=== PATIENT | male | born 1995 | race Caucasian/White ===

== ENCOUNTER 2020-05-05 09:26 | Emergency (ER) | payer BC, SELFPAY ==
[2020-05-05 09:41] VITALS: BP 113/79; PULSE 118; RESP 20; TEMP 38.4; O2SAT 97
--- NOTE | 2020-05-05 09:48 | ED.GENADULT ---
HPI - General Adult General Stated complaint: body aches Time Seen by Provider: 05/05/20 09:49 History of Present Illness HPI narrative: 24-year-old male patient presents to the [facility] with complaints of fevers that started yesterday. Patient states he has had a slight cough but denies any shortness of breath. Patient states that he does work as a class a truck driver and states that there has been some people at work that have tested positive for COVID-19. Patient states he was around his grandmother yesterday morning that does have a slight cold. Patient states that his symptoms started last night. Denies taking anything for the symptoms except for aspirin. Patient does admitting to smoke about a pack a week. Related Data Allergies Allergy/AdvReac Type Severity Reaction Status Date / Time No Known Allergies Allergy Mild Unverified 05/04/15 20:08 Review of Systems Review of Systems: Narrative: CONSTITUTIONAL: Positive fever, denies chills, or sweats. EYES: Denies visual changes, redness, or discharge. ENT: Denies rhinorrhea, congestion, sore throat, or otalgia. CARDIOVASCULAR: Denies chest pain, palpitations, or edema. RESPIRATORY: Positive mild cough, denies dyspnea. GASTROINTESTINAL: Denies abdominal pain, nausea, vomiting, or diarrhea. GENITOURINARY: Denies dysuria or hematuria. SKIN: Denies rash or itching. MUSCULOSKELETAL: Denies back pain, joint pain, or myalgia. NEUROLOGIC: Denies headache, numbness, or weakness. PSYCHIATRIC: Denies anxiety or depression. PMFSH Comments At the time of my signature I agree with nursing past medical history, surgical, social, and family history. There is no relevant family history pertinent to the presenting complaint. Exam Narrative: Exam Narrative: GENERAL: Well-appearing, well-nourished, and in no acute distress. HEAD: Normocephalic, atraumatic. EYES: PERRLA and EOMI. ENT: Nares clear, no rhinorrhea or epistaxis. Mucous membranes moist. Posterior pharynx with no erythema, tonsil enlargement, exudates or lesions present. Bilateral TMs are clear no erythema or foreign bodies to the canal. NECK: Supple. No lymphadenopathy CHEST: Clear to auscultation. No respiratory distress. HEART: Regular rate and rhythm. No murmur heard. Normal peripheral pulses. ABDOMEN: Soft, nontender, nondistended, normal active bowel sounds. EXTREMITIES: Normal range of motion. No edema. SKIN: Warm, dry, no rash. NEURO: No focal deficits. Alert and oriented x3. Course Vital Signs Vital signs: Vital Signs Temperature 38.4 C H 05/05/20 09:41 Pulse Rate 118 H 05/05/20 09:41 Respiratory Rate 20 05/05/20 09:41 Blood Pressure 113/79 05/05/20 09:41 Pulse Oximetry 97 05/05/20 09:41 Temperature 38.4 C H 05/05/20 09:41 Pulse Rate 118 H 05/05/20 09:41 Respiratory Rate 20 05/05/20 09:41 Blood Pressure 113/79 05/05/20 09:41 Pulse Oximetry 97 05/05/20 09:41 Vital signs reviewed. Medical Decision Making Differential Diagnosis Differential Diagnosis: Differential diagnosis: Allergic rhinitis, chronic sinusitis, tonsillitis, acute sinusitis, infectious mononucleosis, seasonal influenza, pertussis, diphtheria, meningococcal disease, viral syndrome, viral bronchitis, RSV., COVID-19 Discussed with patient that we will go ahead and send an order to the hospital to have been tested for COVID-19. Discussed with patient that while he was waiting to be swab and after he has been swab is very important to maintain isolation and continue to quarantine himself. Discussed with him he can take Tylenol or ibuprofen as needed for fevers, keep himself well-hydrated and if he has worsening symptoms such as chest pain, worsening shortness of breath or high fevers that do not come down with Tylenol ibuprofen then it is advised that he goes to the ER for further evaluation and treatment. Patient verbalized understanding of this denies any other questions or concerns at this time. Vital Signs Vital Signs: Alayna
== END 2020-05-05 10:05 | disposition home or self-care (01) ==
PROVIDERS: Emergency Provider Nurse Practitioner Family
DX: Z20.828 Contact with and (suspected) exposure to other viral communicable diseases (principal); R50.9 Fever, unspecified
CPT/HCPCS: 99201; G0463

== ENCOUNTER 2023-05-16 11:41 | Emergency (ER) | payer BC, SELFPAY ==
[2023-05-16 11:59] VITALS: BP 127/83; PULSE 68; RESP 18; TEMP 37.2; O2SAT 98
--- NOTE | 2023-05-16 12:10 | ED.ABDPAIN ---
HPI - Abdominal Pain General Chief Complaint: Abdominal Pain Stated Complaint: stomach issues Time Seen by Provider: 05/16/23 12:25 Source: patient Mode of arrival: ambulatory Limitations: no limitations History of Present Illness HPI narrative: Patient is a 27-year-old male that presents with acid reflux, nausea and diarrhea since Saturday. Patient has taken Tums with no relief. Does report mild abdominal cramping and frequent urgency to have bowel movement. Denies any fever, chills and vomiting. Denies any sick contacts. Denies any blood in diarrhea. Denies any pain when pushing on stomach. Does report as reflux is worse when he lays down night. Reports diet does consist of for food and spicy food along with caffeine. Related Data Allergies Allergy/AdvReac Type Severity Reaction Status Date / Time No Known Allergies Allergy Mild Verified 05/16/23 11:48 Review of Systems Review of Systems: All systems reviewed & are unremarkable except as noted in HPI and below Constitutional: Constitutional: Denies body ache(s), Denies chills, Denies fatigue, Denies fever(s), Denies headache(s), Denies malaise and Denies weakness Eyes: Eyes: Denies blurry vision, Denies irritation and Denies loss of vision ENT: Denies otalgia, Denies headache(s), Denies nasal discharge, Denies sinus pain and Denies sore throat Cardiovascular: Cardiovascular: Denies chest pain, Denies irregular heart rhythm and Denies dyspnea Respiratory: Respiratory: Denies dyspnea Gastrointestinal: Gastrointestinal: Reports abdominal pain, Denies melena, Denies hematochezia, Reports heartburn, Reports diarrhea, Reports nausea and Denies vomiting Musculoskeletal: Musculoskeletal: Denies back pain, Denies myalgias and Denies arthralgias Integumentary/Breasts: Skin/Breast: Denies pruritus and Denies rash Neurologic: Denies headache(s), Denies loss of vision and Denies weakness Psychiatric: Psychiatric: Reports no additional psychiatric complaints Endocrine: Endocrine: Denies fatigue PMFSH Social History Social History Gender identity (if verbalized by the patient): Male Comments At time of signature, agree with nursing past medical, surgical, social and family history. There is no relevant family history pertinent to the presenting complaint. Exam Const: General: cooperative, healthy appearing, comfortable, no acute distress and well nourished Nutritional Appearance: well nourished Orientation/consciousness: patient oriented x3 Limitations: no limitations HENMT: Head: normal to inspection, normocephalic and atraumatic Ears: hearing grossly normal bilaterally and external ears normal Face/Nose/Sinus: Normal external nose present, normal facial exam and face symmetric Face and sinus: normal facial exam and face symmetric Mouth: Yes lip normal Eyes: General: appearance normal, both eyes and all related structures Alignment and Position: alignment normal and position normal Periorbital: periorbital findings normal Eyelids: eyelids normal Pupils: Equal, round and reactive pupils present EOM: EOMs intact bilaterally Neck: Neck: normal visual inspection, full ROM and supple Chest: Chest palpation & inspection: normal inspection of the chest Resp: Effort & Inspection: normal respiratory effort and able to speak in complete sentences Auscultation: clear to auscultation bilaterally Cardio: Rate: regular rate Rhythm: regular rhythm Heart sounds: S1 normal heart sound present and S2 normal heart sound present GI: Inspection: normal to inspection GI Palp: No abdominal tenderness, Yes Soft to palpation and No Guarding due to palpation present (GI) Skin: General skin exam: normal color and no rashes or lesions noted Neuro: General: patient oriented x3 and moves all extremities Cranial nerves: Yes Equal, round and reactive pupils present Speech: normal speech Gait exam (Neuro): Normal gait present Extre
== END 2023-05-16 12:48 | disposition home or self-care (01) ==
PROVIDERS: Emergency Provider Nurse Practitioner Family; PCP Family Medicine
DX: K52.9 Noninfective gastroenteritis and colitis, unspecified (principal); K21.9 Gastro-esophageal reflux disease without esophagitis
CPT/HCPCS: 99213; G0463

== ENCOUNTER 2023-05-29 10:59 | Emergency (ER) | payer BC, SELFPAY ==
[2023-05-29 11:13] VITALS: BP 130/78; PULSE 87; RESP 16; TEMP 37.1; O2SAT 100
--- NOTE | 2023-05-29 11:14 | ED.GENADULT ---
HPI - General Adult General Chief complaint: Unspecified Stated complaint: Fatigue Time Seen by Provider: 05/29/23 11:19 Source: patient and RN notes reviewed Mode of arrival: ambulatory Limitations: no limitations History of Present Illness HPI narrative: 27-year-old male presents with concern for general malaise, fatigue that started on Saturday. He reports symptoms started on Saturday after he was working out in the heat, he is a press hand. Reports he has felt fatigued since then. He reports he takes Tylenol ibuprofen. He denies fever, aches, sweats. Reports chills on Saturday. Reports his mother is sick with a virus. MD complaint: Fatigue Related Data Home Medications Medication Instructions Recorded Confirmed No Home Medications 05/29/23 05/29/23 Allergies Allergy/AdvReac Type Severity Reaction Status Date / Time No Known Allergies Allergy Mild Verified 05/29/23 11:11 Review of Systems Review of Systems: CONSTITUTIONAL: Reports malaise, chills, fatigue. Denies sweats, or fever. EYES: Denies visual changes, redness, or discharge. ENT: Denies rhinorrhea, congestion, sinus pain, otalgia and sore throat. CARDIOVASCULAR: Denies chest pain, palpitations, or edema. RESPIRATORY: Reports occasional cough. Denies dyspnea. GASTROINTESTINAL: Denies abdominal pain, nausea, vomiting, diarrhea SKIN: Denies rash or itching. MUSCULOSKELETAL: Denies myalgia. NEUROLOGIC: Denies headache. All systems reviewed & are unremarkable except as noted in HPI and below PMFSH Social History Social History Gender identity (if verbalized by the patient): Male Comments At time of signature, agree with nursing past medical, surgical, social and family history. There is no relevant family history pertinent to the presenting complaint Exam Narrative: GENERAL: Well-appearing, well-nourished, and in no acute distress. HEAD: Normocephalic EYES: PERRLA, conjunctivae clear ENT: Nares clear. Mucous membranes moist. TM pearly siddiqui with sharp light reflex bilaterally; no tragal tenderness. Oropharynx not erythematous without lesions. Tonsils not enlarged and without exudate, no drooling, no hoarseness, no trismus, uvula midline. NECK: Supple. No lymphadenopathy CHEST: Clear to auscultation, breath sounds equal. No wheezing, rhonchi, rales, or stridor. No respiratory distress, speaks in full sentences. HEART: Regular rate and rhythm. No murmur heard. SKIN: Warm, dry, no rash. NEURO: Alert and oriented x3. PSYCH: Normal mood and affect Course Course Emergency Course: Patient is aware of diagnosis, understands and agrees to treatment plan. Anticipatory guidance given. Patient agrees to follow-up as directed and is aware of reasons to seek care at the emergency department. Portions of this record may have been created with voice recognition software Level of Care: Express Care Visit Vital Signs Vital signs: Vital Signs Temperature 98.7 F 05/29/23 11:13 Pulse Rate 87 05/29/23 11:13 Respiratory Rate 16 05/29/23 11:13 Blood Pressure 130/78 05/29/23 11:13 Pulse Oximetry 100 05/29/23 11:13 Oxygen Delivery Room Air 05/29/23 11:13 Temperature 98.7 F 05/29/23 11:13 Pulse Rate 87 05/29/23 11:13 Respiratory Rate 16 05/29/23 11:13 Blood Pressure 130/78 05/29/23 11:13 Pulse Oximetry 100 05/29/23 11:13 Oxygen Delivery Room Air 05/29/23 11:13 Reviewed. Medical Decision Making Vital Signs Vital Signs: Vital Signs Temperature 98.7 F 05/29/23 11:13 Pulse Rate 87 05/29/23 11:13 Respiratory Rate 16 05/29/23 11:13 Blood Pressure 130/78 05/29/23 11:13 Pulse Oximetry 100 05/29/23 11:13 Oxygen Delivery Room Air 05/29/23 11:13 Temperature 98.7 F 05/29/23 11:13 Pulse Rate 87 05/29/23 11:13 Respiratory Rate 16 05/29/23 11:13 Blood Pressure 130/78 05/29/23 11:13 Pulse Oximetry 100 05/29/23 11:13 Oxygen De
== END 2023-05-29 11:30 | disposition home or self-care (01) ==
PROVIDERS: Emergency Provider Nurse Practitioner
DX: B34.9 Viral infection, unspecified (principal); Z20.822 Contact with and (suspected) exposure to COVID-19
CPT/HCPCS: 87426; 99213; C9803; G0463